=== PATIENT | female | born 1955 | race Caucasian/White ===

== ENCOUNTER 2022-12-24 14:02 | Emergency (ER) | payer MEDICARE, OTHER ==
--- NOTE | 2022-12-24 14:09 | ED Physician Documentation ---
PD HPI UPPER EXT INJURY - Stated complaint Stated Complaint: GLF - Chief complaint Chief Complaint: Trauma Ext - History obtained from History obtained from: Patient, EMS - Additonal information Additional information: [place] of dog food in her hands and slipped and fell on an outstretched, dominant right wrist. She also has a scrape on the knee. Last tetanus is unknown. Really the only site of pain is the right wrist. No head injury. She declines pain medication on initial evaluation. PD PAST MEDICAL HISTORY - Past Surgical History Past Surgical History: Yes /[employer]: Hysterectomy - Present Medications Home Medications: Ambulatory Orders Medication Instructions Recorded Confirmed Albuterol 2.5 mg INH ONCE 08/15/15 08/15/15 Azithromycin [Zithromax] 0 mg PO DAILY #6 tablet 08/15/15 Guaifenesin/Pseudoephedrne HCl 1 tab PO ONCE 08/15/15 08/15/15 [Mucinex D ER 1,200-120 mg Tab] Loratadine [Claritin] 5 mg PO DAILY 08/15/15 08/15/15 - Allergies Allergies/Adverse Reactions: Allergies Allergy/AdvReac Type Severity Reaction Status Date / Time sulfamethoxazole Allergy Cramps Verified 12/24/22 14:05 [From Bactrim] Tetracyclines Allergy Rash Verified 12/24/22 14:05 trimethoprim [From Bactrim] Allergy Cramps Verified 12/24/22 14:05 - Social History Does the pt smoke?: No Smoking Status: Never smoker Does the pt drink ETOH?: No Does the pt have substance abuse?: No - Immunizations Immunizations are current?: Yes PD ED PE NORMAL - Vitals Vital signs reviewed: Yes - General General: Alert and oriented X 3, No acute distress - HEENT HEENT: PERRL, EOMI - Neck Neck: Supple, no meningeal sign, No bony TTP - Respiratory Respiratory: No respiratory distress, Clear bilaterally - Abdomen Abdomen: Non tender - Back Back: No spinal TTP - Extremities Extremities: Other (Deformity of the right wrist consistent with fracture, nor mal neurovascular function in the hand and no hand or elbow tenderness on the right. There is an abrasion on the right knee but no underlying bony tenderness or limited range of motion. Normal gait.) - Neuro Neuro: Alert and oriented X 3, Normal speech Results - Vitals Vitals: Vital Signs - 24 hr 12/24/22 14:05 Temperature 36.5 C Heart Rate 88 Respiratory 16 Rate Blood Pressure 130/80 O2 Saturation 98 Oxygen O2 Source Room air - Rads (name of study) Right wrist x-ray demonstrating an impacted distal radius fracture Relevant Findings:: Final report received, EMP independent interpretation of test Postreduction x-ray of the right wrist shows improvement in alignment. She is negative x-rays of the right elbow and left wrist. Relevant Findings:: Final report received, EMP independent interpretation of test Procedures - Splint (location) - Minor RUE Splint applied by: Physician, Tech Type of splint: Long arm, Sugar tong Other: Patient tolerated well, No complications, Neurovascular intact, Sling provided - Reduction Body part reduced: Right, Wrist Fracture or dislocation: Fracture Anesthesia: Hematoma block Reduction aftercare: Xray confirms reduction, Patient tolerated well PD Medical Decision Making - ED course ED course: 67-year-old woman with mechanical ground-level fall and prominent right wrist injury. Also more minor injuries of the left wrist and right elbow. Has a distal radius fracture with shortening and was actually able to bring it at least partially out to length after hematoma block and reduction and then she was splinted and referred to orthopedics. Departure - Departure Disposition: 01 Home, Self Care Clinical Impression: Fracture of right distal radius Qualifiers: Encounter type: initial encounter Fracture type: closed Fracture morphology: other extra-articular Qualified Code(s): S52.551A - Other extraarticular fracture of lower end of right radius, initial encounter for closed fracture Left wrist sprain Qualifiers: Encounter type: initial encounter Qualified Code(s): S63.502A - Unspecified sprain of left wrist, initial encounter Contusion of right elbow Qualifiers: Encounter type: initial encounter Qualified Code(s): S50.01XA - Contusion of right elbow, initial encounter Condition: Good Record reviewed to determine appropriate education?: Yes Instructions: ED Fx Forearm Radius Ulna Redu Requ Follow-Up: Orthopedic Care [Provider Group] - Within 1 week Comments: Keep the splint on and dry, do not remove it, follow-up with the orthopedic clinic, calling Monday for next available appointment, certainly within the week. Discharge Date/Time: 12/24/22 16:44
[2022-12-24] MEDS ORDERED: TETANUS/DIPHTHERIA/PERTUSSIS 0.5 ML SYRINGE IM ONE (14:10)
[2022-12-24 14:15] VITALS: BP 130/80; O2SAT 98
[2022-12-24] MEDS ORDERED: BUPIVACAINE 0.5% PF 10 ML VIAL SUBQ STA (14:39)
--- OUTSIDE RECORDS SUMMARY | 2022-12-24 14:47 | EXTERNAL MEDICAL SUMMARY RPT | Continuity of Care Document ---
Author Name Unknown Address [address] [place] [address] Phone Organization [facility] Address [address] [place] [address] Phone Care Team Providers Care Contracts Attorney Name Role Phone Rocío Smalls Unavailable Unavailable Problems date description facility 2022-12-14 00:00 Medial epicondylitis of right e [facility] 2022-12-14 00:00 Lateral epicondylitis of right [facility] Results/Labs test date facility value unit notes Social History date description facility 2022-12-14 00:00 Never smoked tobacco ([facility] Vital Signs date measurement value units 2022-12-14 00:00 BMI 27.4 kg/m2 2022-12-14 00:00 BP_diastolic 84 mmHg 2022-12-14 00:00 BP_systolic 158 mmHg 2022-12-14 00:00 heart_rate 75 /min 2022-12-14 00:00 height_metric 170.18 cm 2022-12-14 00:00 height_standard 67 in 2022-12-14 00:00 o2_saturation 98 % 2022-12-14 00:00 temperature_metric 35.89 C 2022-12-14 00:00 temperature_standard 96.6 F 2022-12-14 00:00 weight_metric 79.6 kg 2022-12-14 00:00 weight_standard 175.49 lb
--- NOTE | 2022-12-24 15:11 | XRAY Report ---
PROCEDURE: Wrist 3 View RT INDICATIONS: wrist inj TECHNIQUE: 3 views of the wrist were acquired. COMPARISON: None. FINDINGS: Bones: Comminuted distal radial fracture extending into the radioulnar and radiocarpal joint spaces. Moderate osteoarthritic changes at the first carpometacarpal triscaphe joint. Soft tissues: No suspicious soft tissue calcifications or masses. IMPRESSION: Comminuted distal intra-articular radial fracture. Reviewed by: Cody Mayo MD on 12/24/2022 2:09 PM FELICITAS Approved by: Cody Mayo MD on 12/24/2022 2:09 PM FELICITAS Station ID: [id number]
[2022-12-24] MEDS ORDERED: ACETAMINOPHEN 500 MG TABLET PO STA (15:19)
[2022-12-24] MEDS: IBUPROFEN 600 MG TABLET PO STA ×2 (15:24→15:27)
--- NOTE | 2022-12-24 16:36 | XRAY Report ---
PROCEDURE: Elbow 3 View RT INDICATIONS: elbow inj TECHNIQUE: 3 views of the elbow were acquired. COMPARISON: None. FINDINGS: Overlying casting material degrades osseous evaluation. Bones: No fractures or dislocations. No suspicious bony lesions. Soft tissues: No effusion. No suspicious soft tissue calcifications or masses. IMPRESSION: No acute bony abnormality. Reviewed by: Cody Mayo MD on 12/24/2022 3:35 PM AKDT Approved by: Cody Mayo MD on 12/24/2022 3:35 PM AKDT Station ID: [id number]
--- NOTE | 2022-12-24 16:38 | XRAY Report ---
PROCEDURE: Wrist 2 View RT INDICATIONS: post reduction TECHNIQUE: 3 views of the wrist were acquired. COMPARISON: Radiograph from same date FINDINGS: Bones: Overlying casting of a comminuted distal radial fracture in improved alignment. Soft tissues: No suspicious soft tissue calcifications or masses. IMPRESSION: Interval casting of comminuted distal radial fracture Reviewed by: Cody Mayo MD on 12/24/2022 3:37 PM AKMABLE Approved by: Cody Mayo MD on 12/24/2022 3:37 PM AKMABLE Station ID: [id number]
--- NOTE | 2022-12-24 16:40 | XRAY Report ---
PROCEDURE: Wrist 4 View LT INDICATIONS: wrist inj TECHNIQUE: 4 views of the wrist were acquired. COMPARISON: None. FINDINGS: Bones: No fractures or dislocations. No suspicious bony lesions. Moderate osteoarthritic changes of the base of thumb involving the first carpometacarpal/triscaphe joint Soft tissues: No suspicious soft tissue calcifications or masses. IMPRESSION: No acute bony abnormality. Moderate osteoarthrosis. Reviewed by: Cody Mayo MD on 12/24/2022 3:38 PM FELICITAS Approved by: Cody Mayo MD on 12/24/2022 3:38 PM FELICITAS Station ID: [id number]
== END 2022-12-24 16:44 | disposition home or self-care (01) ==
LOC: EDUNIT# → ED 14:02
DX: S52.551A Other extraarticular fracture of lower end of right radius, initial encounter for closed fracture (principal); W01.0XXA Fall on same level from slipping, tripping and stumbling without subsequent striking against object, initial encounter; Z23 Encounter for immunization; Z71.85 Encounter for immunization safety counseling
CPT/HCPCS: 25605; 73080; 73100; 73110; 90471; 90715; 99284; A9270

== ENCOUNTER 2022-12-28 10:22 | Outpatient (CLI) | payer MEDICARE, OTHER ==
--- NOTE | 2022-12-28 13:58 | XRAY Report ---
PROCEDURE: Wrist 2 View RT INDICATIONS: RIGHT WRIST FRACTURE TECHNIQUE: 3 views of the wrist were acquired. COMPARISON: None. FINDINGS: Bones: No significant interval change of the intra-articular fracture through the radial styloid. Soft tissues: No suspicious soft tissue calcifications or masses. Cast material overlies the wrist . IMPRESSION: Unchanged radial styloid fracture. Reviewed by: Rick Hinton on 12/28/2022 1:56 PM PDT Approved by: Rick Hinton on 12/28/2022 1:56 PM PDT Station ID: [id number]
== END 2022-12-28 10:23 | disposition home or self-care (01) ==
LOC: DI.WOS 10:22
PROVIDERS: ATTEND Orthopaedic Surgery
DX: S52.511D Displaced fracture of right radial styloid process, subsequent encounter for closed fracture with routine healing (principal)

== ENCOUNTER 2023-01-05 08:00 | Outpatient (CLI) | payer MEDICARE, OTHER ==
--- NOTE | 2023-01-05 12:25 | XRAY Report ---
PROCEDURE: Wrist 3 View RT INDICATIONS: RIGHT WRIST FRACTURE TECHNIQUE: 3 views of the wrist were acquired. COMPARISON: X-ray right wrist 12/28/2022 FINDINGS: Bones: Similar appearance of intra-articular fracture through the distal radius. Overlying casting m aterial limits evaluation of finer bony detail. Soft tissues: No suspicious soft tissue calcifications or masses. IMPRESSION: Similar appearance of distal radial fracture. Reviewed by: Morris Stafford MD on 01/05/2023 12:24 PM PDT Approved by: Morris Stafford MD on 01/05/2023 12:24 PM PDT Station ID: [id number]
== END 2023-01-05 23:59 | disposition home or self-care (01) ==
LOC: DI.WOS 08:00
PROVIDERS: ATTEND Orthopaedic Surgery
DX: S52.531D Colles' fracture of right radius, subsequent encounter for closed fracture with routine healing (principal)

== ENCOUNTER 2023-01-06 06:03 | Day surgery (SDC) | payer MEDICARE, OTHER ==
[2023-01-06] MEDS ORDERED: ceFAZolin 2 GM VIAL ONE (06:15)
[2023-01-06] MEDS ORDERED: CELECOXIB 100 MG CAPSULE PO ONE (06:17)
[2023-01-06] MEDS ORDERED: ACETAMINOPHEN 500 MG TABLET PO ONE (06:17)
[2023-01-06] MEDS ORDERED: LACTATED RINGERS 1,000 ML IV ONE ×2 (06:45→08:22)
[2023-01-06] MEDS ORDERED: fentaNYL 100 MCG/2 ML VIAL ONE (07:09)
[2023-01-06] MEDS ORDERED: MIDAZOLAM 2 MG/2 ML VIAL ONE (07:09)
[2023-01-06] MEDS ORDERED: LIDOCAINE-PF 2% 10 ML AMP SUBQ ONE (07:10)
[2023-01-06] MEDS ORDERED: ROPIVACAINE 0.5% PF 20 ML VIAL ONE (07:11)
[2023-01-06] MEDS ORDERED: PROPOFOL 500 MG/50 ML 500 MG/50 ML VIAL ONE (07:12)
[2023-01-06] MEDS ORDERED: BUPIVACAINE 0.25% PF 30 ML VIAL ONE (07:23)
[2023-01-06] MEDS ORDERED: LIDOCAINE 1%-EPI 1:100000 20 ML MDV ONE (07:23)
[2023-01-06] MEDS ORDERED: METOCLOPRAMIDE 10 MG/2 ML VIAL IVP PRN (07:39)
[2023-01-06] MEDS ORDERED: NALOXONE 0.4 MG/ML VIAL IVP PRN (07:39)
[2023-01-06] MEDS ORDERED: ePHEDrine 50 MG/ML VIAL IVP PRN (07:39)
[2023-01-06] MEDS ORDERED: ATROPINE ABBOJECT 1 MG/10 ML SYRINGE IVP PRN (07:39)
[2023-01-06] MEDS ORDERED: HYDROmorphone 0.5 MG/0.5 ML SYRINGE IVP PRN (07:39)
[2023-01-06] MEDS ORDERED: fentaNYL 100 MCG/2 ML VIAL IVP PRN (07:39)
[2023-01-06] MEDS ORDERED: MORPHINE 2 MG/ML CARPUJECT IVP PRN (07:39)
[2023-01-06] MEDS ORDERED: ONDANSETRON 4 MG/2 ML VIAL IVP PRN (07:39)
--- NOTE | 2023-01-06 07:39 | ANESTHESIA ---
Pre-Anesthesia VS, & Labs - Diagnosis R distal radius fx - Procedure R perc pinning distal radius Vital Signs: Temp Pulse Resp BP Pulse Ox O2 Flow Rate 36.4 C L 94 16 159/100 H 99 01/06/23 06:29 01/06/23 06:29 01/06/23 06:29 01/06/23 06:29 01/06/23 06:29 Height: 5 ft 7 in Weight (kg): 79 kg Body Mass Index: 27.2 BMI Classification: Overweight - NPO >8 hours Last Fluid Intake: sips with eras meds - Is Patient ?: No - Lab Results Lab results reviewed: Yes Home Medications and Allergies Home Medications: Ambulatory Orders Cetirizine HCl [Zyrtec] 10 mg PO DAILY 01/05/23 Ibuprofen [Ibuprofen Ib] 200 mg PO TID 01/05/23 Cetirizine HCl [Zyrtec] 10 mg PO DAILY 01/05/23 Ibuprofen [Ibuprofen Ib] 200 mg PO TID 01/05/23 Allergies/Adverse Reactions: Allergies Allergy/AdvReac Type Severity Reaction Status Date / Time sulfamethoxazole Allergy Cramps Verified 12/24/22 14:05 [From Bactrim] Tetracyclines Allergy Rash Verified 12/24/22 14:05 trimethoprim [From Bactrim] Allergy Cramps Verified 12/24/22 14:05 Anes History & Medical History - Anesthetic History Anesthesia Complications: reports: No previous complications, Post-Operative Nausea/Vomiting Family history of Anesthesia Complications: Denies Family history of Malignant Hyperthermia: Denies - Medical History Cardiovascular: reports: None Pulmonary: reports: None Gastrointestinal: reports: None Urinary: reports: None Musculoskeletal: reports: Osteoarthritis Endocrine/Autoimmune: reports: None Skin: reports: None Smoking Status: Never smoker - Surgical History Urologic: reports: Bladder surgery Gynecologic: reports: Tubal ligation, Hysterectomy Exam General: Alert, Oriented x3, Cooperative Dental: WNL Mouth Openin Fingerbreadth Neck Mobility: Normal Mallampati classification: II Thyromental Distance: 4-6 cm Respiratory: Lungs clear, Normal breath sounds, No respiratory distress Cardiovascular: Regular rate Neurological: Normal speech Mental/Cognitive Status: Alert/Oriented X3, Normal for patient Cognitive Status: Within normal limits Plan Anesthesia Type: MAC, Supraclavicular Block, Transverse Abdominis Plane (TAP) Block Regional Block: Per Surgeon's request for Post Op pain control Consent for Procedure(s) Verified and Reviewed: Yes Code Status: Attempt Resuscitation ASA classification: 2-Mild systemic disease Is this case an emergency?: No
[2023-01-06] MEDS ORDERED: ONDANSETRON 4 MG/2 ML VIAL ONE ×2 (07:59→09:12)
[2023-01-06] MEDS ORDERED: LACTATED RINGERS 1,000 ML IV SCH (08:00)
--- NOTE | 2023-01-06 08:10 | OPERATIVE REPORT ---
Operative Report - General Procedure Date: 01/06/23 Planned Procedure: Closed reduction, percutaneous pinning distal radius fracture right wrist Pre-Op Diagnosis: Displaced Colles' fracture right wrist Procedure Performed: Closed reduction right distal radius fracture, percutaneous K wire fixation right distal radius Post Op Diagnosis: Same as preoperative diagnosis - Procedure Note Primary Surgeon: Damion Morales MD Secondary Surgeon: Eli VAUGHN Anesthesia Provider: Alejandro Hughes CRNA Anesthesia Technique: Moderate sedation, Regional block Estimated Blood Loss (mL): 0 Indications: This is a 67-year-old woman with a displaced right distal radius fracture associated with a fall approximately 2 weeks ago. She has been treated with closed reduction and cast application but has lost reduction during the healing process. Shared decision making performed and the plan was to try closed reduction percutaneous distal radius fixation of fracture to right distal radius. Her dominant hand is her right. Her x-rays show a extra-articular fracture perhaps subtle intra-articular fracture right distal radius with displacement with shortening and angulation. Informed consent signed for closed reduction right distal radius and percutaneous pinning right distal radius Findings: Displaced distal radius fracture right wrist as described associated with osteopenia Complications: None - Other Other Information/Narrative: The patient was brought to the operating room and was placed in a supine position with the right arm on a arm extension table. The patient received a regional block with supplemental sedation. The right upper extremity was prepped and draped in a sterile manner in the usual fashion. The C-arm image intensifier was utilized and covered with a sterile drape. A timeout procedure was performed by the entire operating room team and all were in agreement. Finger traps were applied to all 5 fingers and a traction bow as well. Longitudinal traction was applied, direct manipulation of the fracture site over a sterile bump. The C-arm image intensifier showed good alignment and a percutaneous pinning was performed with 0.062 K wires. The bare area of the radial styloid was engaged and pin was inserted from the styloid across the fracture to achieve bicortical fixation. An additional K wire from the radial styloid was also inserted to provide 2 bicortical K wires from the radial styloid. An additional K wire was inserted from the ulnar corner of the distal radius distally and this was then driven from distal to proximal and ulnar to radial. Biplanar and oblique imaging was obtained and there was satisfactory alignment of the fixation and fracture. The K wires were cut external to skin and covered with sterile balls. A well-padded short arm fiberglass splint was applied with gauze padding around the K wires. He tolerated the procedure well. No tourniquet was utilized.A physician fiscal assistant was medically necessary to help with prepping and draping, positioning, protection of vital structures, assistance during the procedure including wound closure, dressing and/or splinting.
[2023-01-06] MEDS ORDERED: ACETAMINOPHEN 500 MG TABLET PO PRN (08:30)
[2023-01-06] MEDS ORDERED: oxyCODONE 5 MG TABLET PO PRN (08:30)
[2023-01-06] MEDS ORDERED: CELECOXIB 100 MG CAPSULE PO PRN (08:30)
[2023-01-06] MEDS ORDERED: ONDANSETRON ODT 4 MG TABLET TL PRN (08:30)
[2023-01-06] MEDS ORDERED: PROMETHAZINE 25 MG/1 ML VIAL ONE (09:43)
[2023-01-06 10:27] VITALS: BP 141/80; O2SAT 100
--- NOTE | 2023-01-06 10:39 | ANESTHESIA POST OP EVALUATION ---
Anesthesia Post Eval - Post Anesthesia Eval Vitals: Last Vital Signs Temp 36.0 C L 01/06/23 10:00 Pulse 60 01/06/23 10:00 Resp 14 01/06/23 10:00 BP 141/80 H 01/06/23 10:00 Pulse Ox 100 01/06/23 10:00 O2 Flow Rate CV Function Including HR & BP: Stable Pain Control: Satisfactory Nausea & Vomiting: Negative (improved, tolerated PO intake, able to get dressed, and get to WC for DC) Mental Status: Baseline Respiratory Status: Airway Patent Hydration Status: Satisfactory Anesthesia Complications: None
== END 2023-01-06 06:04 | disposition home or self-care (01) ==
LOC: SDS 06:03
PROVIDERS: ATTEND Orthopaedic Surgery
DX: S52.531A Colles' fracture of right radius, initial encounter for closed fracture (principal); W19.XXXA Unspecified fall, initial encounter
CPT/HCPCS: 25606; A9270; C1713; J2795; J7120

== ENCOUNTER 2023-02-20 08:00 | Outpatient (CLI) | payer MEDICARE, OTHER ==
--- NOTE | 2023-02-20 15:46 | XRAY Report ---
PROCEDURE: Wrist 3 View RT INDICATIONS: RIGHT WRIST FRACTURE TECHNIQUE: 3 views of the wrist were acquired. COMPARISON: X-ray wrist 01/05/2023 FINDINGS: Bones: There is improved alignment of the impacted distal radial fracture. Portions of fracture luce ncy remains visible. Fracture also extends to the radial styloid. Soft tissues: No suspicious soft tissue calcifications or masses. IMPRESSION: Improved alignment with healing although persistent lucency of distal radial fracture. Reviewed by: Nita Kay MD on 02/20/2023 3:44 PM PDT Approved by: Nita Kay MD on 02/20/2023 3:44 PM PDT Station ID: [id number]
== END 2023-02-20 23:59 | disposition home or self-care (01) ==
LOC: DI.WOS 08:00
PROVIDERS: ATTEND Orthopaedic Surgery
DX: S52.531D Colles' fracture of right radius, subsequent encounter for closed fracture with routine healing (principal)

== ENCOUNTER 2023-05-01 08:00 | Outpatient (CLI) | payer MEDICARE, OTHER ==
--- NOTE | 2023-05-01 16:05 | XRAY Report ---
PROCEDURE: Wrist 3 View RT INDICATIONS: RIGHT WRIST FRACTURE TECHNIQUE: 3 views of the wrist were acquired. COMPARISON: 02/20/2023 FINDINGS: Bones: No acute fracture seen. Continued healing of known impacted distal right radial fracture. Sta ble alignment. Decreased conspicuity of the fracture line. Stable appearance of polyarticular backgro und degenerative changes of the right wrist. Degenerative changes are again most severe in the trisca phe joint and first carpometacarpal joints. Soft tissues: No suspicious soft tissue calcifications or masses. IMPRESSION: Continued healing of known impacted distal right radial fracture. Stable alignment. Stable appearance of severe polyarticular background degenerative changes of the right wrist. Reviewed by: Brian Tapia MD on 05/01/2023 4:04 PM PST Approved by: Brian Tapia MD on 05/01/2023 4:04 PM PST Station ID: [id number]
== END 2023-05-01 23:59 | disposition home or self-care (01) ==
LOC: DI.WOS 08:00
PROVIDERS: ATTEND Orthopaedic Surgery
DX: S52.531D Colles' fracture of right radius, subsequent encounter for closed fracture with routine healing (principal); M19.031 Primary osteoarthritis, right wrist